=== PATIENT | male | born 1995 | race Caucasian/White ===

== ENCOUNTER 2020-02-01 23:20 | Emergency (ER) | payer MEDICARE, MEDICAID, OTHER ==
[2020-02-01] MEDS ORDERED: Orphenadrine 60 MG/2 ML Inj IM ONE (23:35)
--- NOTE | 2020-02-01 23:37 | EDM.PDOC ---
ED HPI GENERAL MEDICAL PROBLEM - General Chief Complaint: Lower Extremity Injury/Pain Stated Complaint: leg problems Time Seen by Provider: 02/01/20 23:20 Source of Information: Reports: Patient, Family History Limitations: Reports: No Limitations - History of Present Illness INITIAL COMMENTS - FREE TEXT/NARRATIVE: Patient states tonight when trying to get up from the picnic table when he stood up his legs just locked up secondary to being tight in the back of his quads and hamstrings. States he was seen in the clinic for this today where they took x- rays and was given some muscle relaxers and some ibuprofen prescriptions but he was not able to get them filled yet. Patient states approximately last year or so he has been having increased lower extremity pain and intermittent tightness such as this episode states he has not been seen about it by his primary care provider. Patient has a history of CP and states that he has chronic pain most every day but has been dealing with it until recently. He recently moved here from [facility] yesterday and was seen today in clinic. He has no other complaints at this time he denies any loss of sensation numbness or tingling lower extremity weakness no other tightness in muscles anywhere else on the body no muscle cramping anywhere else on the body states he has been eating drinking normally States he smokes approximately 1 pack a day and has been since age of 67 years old Duration: Hour(s): Location: Reports: Lower Extremity, Left, Lower Extremity, Right Quality: Reports: Throbbing, Other (Tightness) Severity: Moderate Improves with: Reports: None Worsens with: Reports: None Associated Symptoms: Reports: No Other Symptoms. Denies: Fever/Chills, Headaches, Malaise, Seizure, Syncope, Weakness Review of Systems - Review of Systems Review Of Systems: See Below Constitutional: Reports: No Symptoms Eyes: Reports: No Symptoms Mouth/Throat: Reports: No Symptoms Respiratory: Reports: No Symptoms Cardiovascular: Reports: No Symptoms GI/Abdominal: Reports: No Symptoms Genitourinary: Reports: No Symptoms Musculoskeletal: Reports: Muscle Pain, Muscle Stiffness Skin: Reports: No Symptoms Neurological: Reports: No Symptoms. Denies: Numbness, Tingling, Difficulty Walking, Weakness ED EXAM, GENERAL - Physical Exam Exam: See Below Exam Limited By: No Limitations General Appearance: Alert, WD/WN, No Apparent Distress, Other (Patient is alert and oriented x4 with normal conversation cranial nerves II through XII are intact he is in no acute distress noted on exam) Eye Exam: Bilateral Eye: EOMI, Normal Inspection Throat/Mouth: Normal Inspection, Normal Lips, Normal Teeth, Normal Gums, Normal Oropharynx, Normal Voice, No Airway Compromise Head: Atraumatic, Normocephalic Neck: Normal Inspection, Supple, Non-Tender, Full Range of Motion Respiratory/Chest: No Respiratory Distress, Lungs Clear, Normal Breath Sounds, No Accessory Muscle Use, Chest Non-Tender Cardiovascular: Normal Peripheral Pulses, Regular Rate, Rhythm, No Edema, No Gallop, No JVD, No Murmur, No Rub GI/Abdominal: Normal Bowel Sounds, Soft, Non-Tender, No Organomegaly, No Distention Extremities: Normal Inspection, Normal Range of Motion, Non-Tender, No Pedal Edema, Normal Capillary Refill, Other (Patient has 4 out of 5 bilateral lower extremity strength 2+ DTR positive dorsalis pedis posterior tibialis there is some mild noted tightness in the hamstrings and quadriceps but they are soft and supple as well as bilateral lower calfs) Neurological: Alert, CN II-XII Intact, Normal Cognition, Normal Reflexes, No Motor/Sensory Deficits Psychiatric: Normal Affect, Normal Mood Skin Exam: Warm, Dry, Intact, Normal Color, No Rash Course - Vital Signs Text/Narrative:: Patient will be given 60 mg Norflex IM and told to follow-up in clinic in the next 24 to 48 hours he is also instructed to get his prescription filled of baclofen and ibuprofen that he was given in clinic today He may return to the emergency room if anything changes or gets worse I reviewed his chart from the clinic today - Orders/Labs/Meds Orders: Active Orders 24 hr Category Date Time Status Orphenadrine [Norflex] Med 02/02/20 20:00 Ordered 100 mg PO BEDTIME Departure - Departure Time of Disposition: 23:45 Disposition: Home, Self-Care 01 Condition: Good Clinical Impression: Bilateral leg cramps - Discharge Information *PRESCRIPTION DRUG MONITORING PROGRAM REVIEWED*: No *COPY OF PRESCRIPTION DRUG MONITORING REPORT IN PATIENT TOLU: No - Problem List & Annotations (1) Bilateral leg cramps SNOMED Code(s): 19043092864236554 Code(s): R25.2 - CRAMP AND SPASM Status: Acute - My Orders Last 24 Hours: My Active Orders 07/16/20 20:00 Orphenadrine [Norflex] 100 mg PO BEDTIME - Assessment/Plan Last 24 Hours: My Active Orders 02/02/20 20:00 Orphenadrine [Norflex] 100 mg PO BEDTIME
[2020-02-01] MEDS ORDERED: Methocarbamol 500 MG Tab PO ONE (23:56)
[2020-02-02] MEDS ORDERED: Ondansetron 4 MG Tab.DIS PO ONE (06:09)
[2020-02-02] MEDS ORDERED: Acetaminophen 325 MG Tab PO ONE (06:09)
[2020-02-02] MEDS ORDERED: Take Home: Ondansetron 4 MG Tab.DIS, 2 Tab Pack PO ONE (06:10)
[2020-02-02] MEDS ORDERED: Take Home: Ondansetron 4 MG Tab.DIS, 2 Tab Pack ONE (06:24)
[2020-02-02] MEDS ORDERED: Acetaminophen 325 MG Tab ONE (06:25)
[2020-02-02] MEDS ORDERED: Ondansetron 4 MG Tab.DIS ONE (06:25)
[2020-02-02] MEDS ORDERED: Orphenadrine 100 MG Tab.ER PO SCH (20:00)
== END 2020-02-02 00:07 | disposition home or self-care (01) ==
LOC: VM.ED 23:20
DX: R25.2 Cramp and spasm (principal)
CPT/HCPCS: 99283; 99284; A9270; J2360